=== PATIENT | female | born 1975 | race Caucasian/White ===

== ENCOUNTER 2022-05-27 00:31 | Day surgery (SDC) | payer OTHER, SELFPAY ==
[2022-05-14 15:50] VITALS: BMI 30.1
[2022-05-27 08:54] VITALS: BP 108/73; PULSE 86; RESP 20; TEMP 36.1; O2SAT 100
[2022-05-27] MEDS: LACTATED RINGERS 1,000 ML 150 ML IV CONT (09:11)
--- NOTE | 2022-05-27 09:25 | WPDANESEPPF ---
Anes - Initial Pre Proc Eval Procedure: Operation Date: 05/27/22 10:00 Proposed Procedures p Screening Colonoscopy - Tuan Cortez MD Date/Time: 05/27/22 09:25 Surgeon: Tuan Cortez MD Pre Op Diagnosis: neoplasm screening Patient Data Age: 46 Gender: F Height: 1.56 m Weight: 74.3 kg Last Vital Signs Temp 97 F L 05/27/22 08:54 Pulse 86 05/27/22 08:54 Resp 20 05/27/22 08:54 BP 108/73 05/27/22 08:54 Pulse Ox 100 05/27/22 08:54 O2 Del Method Room Air 05/27/22 08:54 Allergies Allergy/AdvReac Type Severity Reaction Status Date / Time No Known Allergies Allergy Verified 05/27/22 08:53 Home Medications Medication Instructions Recorded Confirmed Type loratadine-pseudoephedrine ER 10 1 tablet PO DAILY PRN Allergy 11/25/20 05/14/22 History mg-240 mg tablet,extended Symptoms [id number] (Claritin-D 24 Hour) naproxen 500 mg tablet 500 mg PO DAILY #30 tabs 10/22/21 05/14/22 Rx buspirone 5 mg tablet 5 mg PO TID PRN anxiety #90 tabs 11/19/21 05/14/22 Rx cholecalciferol (vitamin D3) 1,250 1,250 mcg PO WEEKLY #14 caps 11/19/21 05/14/22 Rx mcg (50,000 unit) capsule fluticasone propionate 50 1 spray intranasal DAILY #16 grams 02/24/22 05/14/22 Rx mcg/actuation nasal spray,suspension (Flonase Allergy Relief) multivitamin (Daily Multi-Vitamin 1 tablet PO DAILY 02/24/22 05/14/22 History tablet) phentermine 37.5 mg capsule 37.5 mg PO DAILY #30 caps 05/11/22 05/27/22 Rx amitriptyline 50 mg tablet 50 mg PO HS 05/14/22 05/14/22 History [id number]-[id number]-[id number] 1 cap PO Q6H PRN Migraine Headache 05/14/22 05/14/22 History 50 mg-300 mg-40 mg capsule (Fioricet) magnesium malate, chelate 1 tab-cap PO DAILY 05/14/22 05/14/22 History Patient hx anesthesia problems: none Family hx anesthesia problems: none Results Review: All pre-operative results and documents have been reviewed as part of the pre-operative evaluation. [facility] Past Medical History Medical History (Updated 05/27/22 @ 09:29 by Tuan Cortez MD) B12 deficiency Chronic pain syndrome Colon cancer screening Fatigue Inflammatory arthritis Mixed hyperlipidemia Rheumatoid factor positive Skin cancer (~2005) Vitamin D deficiency Surgical History Surgical History (Updated 05/08/22 @ 15:29 by Sylvia Lopez) History of removal of ovarian cyst (~2020) Family History Family History Sibling Family history of gynecological problem Family history of seizure disorder Father Carcinoma of colon, Onset Age: 64 Mother Family history of emphysema, Onset Age: 60 Social History Social History Smoking packs per day: 1 Smoking cigarettes per day: 20.0 Years smoked: 19 Smoking pack-years: 19.00 Smoking status: Former smoker Tobacco type: cigarettes Smoking end date: 03/29/08 Alcohol intake: current Alcohol use details: occasionally Substance use: never Substance use type: does not use Lack of Transportation: No Lack of Food: Never True Current Housing: I Have Housing Concerned About Future Housing: No Difficulty Paying Gas/Electric Bills: No Difficulty Paying for Meds: No Currently Unemployed: No Education: High School Diploma/GED Difficulty w/ Childcare or Family Care: No Living arrangements: with family Additional living arrangements comments: Occupation/Education: occupation Gender identity (if verbalized by the patient): Female Sexual Orientation (if Verbalized by the Patient): Straight or Heterosexual Spiritual care concerns: No Agree to blood products: Yes Anes - Eval Final PreProcedure Day of Procedure 05/27/22 09:25 Patient weight: normal Heart: regular rate and rhythm Lungs: clear to auscultation Airway: Mallampati scale class II Neurological: leodan
--- NOTE | 2022-05-27 09:28 | PM.HPGS ---
History of Present Illness History of Present Illness Consent: Risks, benefits, and alternatives have been discussed and questions answered. Patient agrees to proceed with procedure. Chief complaint: neoplasm screening Narrative: Francesca White is a 46 year old female here for first screening colonoscopy Review of Systems Constitutional: Constitutional: Denies headache(s) and Denies weakness Eyes: Eyes: Denies blurry vision ENT: Reports Normal hearing present, Denies headache(s) and Denies neck pain Cardiovascular: Cardiovascular: Denies chest pain and Denies dyspnea Respiratory: Respiratory: Denies dyspnea Gastrointestinal: Gastrointestinal: Reports no additional gastrointestinal complaints Genitourinary: Genitourinary: Denies dysuria Musculoskeletal: Musculoskeletal: Denies neck pain Integumentary/Breasts: Skin/Breast: Denies dry skin Neurologic: Reports Normal hearing present, Denies headache(s) and Denies weakness Psychiatric: Psychiatric: Denies anxiety Endocrine: Endocrine: Denies change in body appearance Hematologic/Lymphatic: Hematologic/Lymphatic: Denies easy bleeding Allergic/Immunologic: Allergic/Immunologic: Denies urticaria PMF Past Medical History Medical History (Updated 05/27/22 @ 09:29 by Tuan Cortez MD) B12 deficiency Chronic pain syndrome Colon cancer screening Fatigue Inflammatory arthritis Mixed hyperlipidemia Rheumatoid factor positive Skin cancer (~2005) Vitamin D deficiency Surgical History Surgical History (Updated 05/08/22 @ 15:29 by Sylvia Lopez) History of removal of ovarian cyst (~2020) Family History Family History Sibling Family history of gynecological problem Family history of seizure disorder Father Carcinoma of colon, Onset Age: 64 Mother Family history of emphysema, Onset Age: 60 Social History Social History Smoking packs per day: 1 Smoking cigarettes per day: 20.0 Years smoked: 19 Smoking pack-years: 19.00 Smoking status: Former smoker Tobacco type: cigarettes Smoking end date: 03/29/08 Alcohol intake: current Alcohol use details: occasionally Substance use: never Substance use type: does not use Lack of Transportation: No Lack of Food: Never True Current Housing: I Have Housing Concerned About Future Housing: No Difficulty Paying Gas/Electric Bills: No Difficulty Paying for Meds: No Currently Unemployed: No Education: High School Diploma/GED Difficulty w/ Childcare or Family Care: No Living arrangements: with family Additional living arrangements comments: Occupation/Education: occupation Gender identity (if verbalized by the patient): Female Sexual Orientation (if Verbalized by the Patient): Straight or Heterosexual Spiritual care concerns: No Agree to blood products: Yes Meds Home Medications and Allergies Home Medications Medication Instructions Recorded Confirmed Type loratadine-pseudoephedrine ER 10 1 tablet PO DAILY PRN Allergy 11/25/20 05/14/22 History mg-240 mg tablet,extended Symptoms [id number] (Claritin-D 24 Hour) naproxen 500 mg tablet 500 mg PO DAILY #30 tabs 10/22/21 05/14/22 Rx buspirone 5 mg tablet 5 mg PO TID PRN anxiety #90 tabs 11/19/21 05/14/22 Rx cholecalciferol (vitamin D3) 1,250 1,250 mcg PO WEEKLY #14 caps 11/19/21 05/14/22 Rx mcg (50,000 unit) capsule fluticasone propionate 50 1 spray intranasal DAILY #16 grams 02/24/22 05/14/22 Rx mcg/actuation nasal spray,suspension (Flonase Allergy Relief) multivitamin (Daily Multi-Vitamin 1 tablet PO DAILY 02/24/22 05/14/22 History tablet) phentermine 37.5 mg capsule 37.5 mg PO DAILY #30 caps 05/11/22 05/27/22 Rx amitriptyline 50 mg tablet 50 mg PO HS 05/14/22 05/14/22 History [id number] 1 cap PO Q6H PRN Migraine
[2022-05-27 09:47] VITALS: BP 99/66; PULSE 87; RESP 21; O2SAT 94
[2022-05-27 09:57] VITALS: BP 109/73; PULSE 80; RESP 19; O2SAT 100
[2022-05-27 10:07] VITALS: BP 108/70; PULSE 76; RESP 18; O2SAT 100
== END 2022-05-27 10:21 | disposition home or self-care (01) ==
PROVIDERS: PCP Family Medicine; Visit Provider Internal Medicine Gastroenterology
PROC: 0DJD8ZZ Inspection of Lower Intestinal Tract, Via Natural or Artificial Opening Endoscopic (ICD-10-PCS; CPT 45378; principal; 2022-05-27 10:00)
DX: Z12.11 Encounter for screening for malignant neoplasm of colon (principal); E78.2 Mixed hyperlipidemia; E55.9 Vitamin D deficiency, unspecified; Z87.891 Personal history of nicotine dependence
CPT/HCPCS: 45378; J2704; J7120

== ENCOUNTER 2023-08-17 15:53 | Outpatient (CLI) | payer BC, SELFPAY ==
--- NOTE | ~2023-08-17 | XR_ITS ---
XR chest 2V DATE: 08/17/2023 16:08 INDICATION: Cough for 2.5 weeks TECHNIQUE: PA and lateral views COMPARISON: None FINDINGS: Normal heart size. No hilar or mediastinal enlargement. No pulmonary infiltrate or consolid ation, pleural effusion or pulmonary vascular congestion or pneumothorax. IMPRESSION: No active cardiopulmonary disease Reviewed, dictated and finalized at location B.
== END 2023-08-17 15:54 ==
PROVIDERS: PCP Family Medicine; Visit Provider Family Medicine
DX: R05.9 Cough, unspecified (principal)
CPT/HCPCS: 71046